=== PATIENT | male | born 1975 | race Caucasian/White ===

== ENCOUNTER → 2016-11-28 | Outpatient (CLI) | payer BC ==
[2016-11-28 12:31] LABS: ALKALINE PHOSPHATASE 70 U/L (45-117); ALT/SGPT 160 U/L (12-78); AST/SGOT 65 U/L (15-37); BLOOD UREA NITROGEN 13 mg/dl (7-18); BUN/CREATININE RATIO 10.2 (10-20); CALCIUM 8.9 mg/dl (8.5-10.1); CARBON DIOXIDE 30 mmol/L (21-32); CHLORIDE 100 mmol/L (98-107); GLUCOSE 90 mg/dl (70-99); HDL CHOLESTEROL 40 mg/dl; POTASSIUM 3.8 mmol/L (3.5-5.1); SODIUM 139 mmol/L (136-145)
[2016-11-28 12:33] LABS: PROLACTIN 1.96 ng/mL; TESTOSTERONE,TOTAL 84.45 ng/dl (241-827)
[2016-11-28 12:41] LABS: CHOLESTEROL 206 mg/dl (0-200); CHOLESTEROL/HDL RATIO 5.2; LDL CHOLESTEROL CALCULATED 101 mg/dl; TRIGLYCERIDES 327 mg/dl (0-150); VERY LOW DENSITY LIPOPROT CALC 65 mg/dl
--- NOTE | 2016-12-05 05:47 | CODING QUERY MEDICAL NECESSITY ---
SUPPORTING DIAGNOSIS NEEDED A supporting diagnosis is required for the test/procedure performed on this patient in order for us to be reimbursed by the patient's insurance. Please provide a supporting diagnosis for the following test/procedure listed below next to the test name along with your signature. *If there is no additional diagnosis for this patient that would support the following test/procedure please document that below next to the test/procedure. DATE OF SERVICE: 11/28/16 Test(s)/Procedure(s) that require a supporting diagnosis: * PSA DIAGNOSIS: Provider Signature: Date: Thank you Agata Lucio [employer] Once completed, please kindly fax back to [phone] For questions please call [phone]
== END | disposition home or self-care (01) ==
LOC: C.LABBFT 07:58
PROVIDERS: ATTEND Nurse Practitioner Family
DX: D35.2 Benign neoplasm of pituitary gland (principal); E78.00 Pure hypercholesterolemia, unspecified; E04.1 Nontoxic single thyroid nodule; E22.1 Hyperprolactinemia

== ENCOUNTER → 2017-02-22 | Outpatient (CLI) | payer BC ==
[2017-02-22 13:11] LABS: THYROID STIMULATING HORMONE 3.85 uIu/ml (0.300-4.500)
== END | disposition home or self-care (01) ==
LOC: C.LABBFT 10:03
PROVIDERS: ATTEND Nurse Practitioner Adult Health
DX: R94.6 Abnormal results of thyroid function studies (principal); R74.0 Nonspecific elevation of levels of transaminase and lactic acid dehydrogenase [LDH]

== ENCOUNTER → 2017-03-22 | Outpatient (CLI) | payer BC ==
[2017-03-22 12:16] LABS: BASO % 0.3 %; BASO ABS # 0.02 K/uL (0-0.2); COMPLETE YES; HEMATOCRIT 47.9 % (42-52); IG% 0.8 %; LYMPH % 30.8 %; LYMPH ABS # 1.91 K/uL (1.2-3.4); MEAN CELL VOLUME 87.6 fL (80-100); MEAN CORPUSCULAR HEMOGLOBIN 29.6 pg (25-34); MEAN CORPUSCULAR HGB CONC 33.8 g/dl (32-36); MEAN PLATELET VOLUME 10.1 fL (7.4-10.4); MONO % 9.4 %; NEUT % 57.7 %; PLATELET COUNT 261 K/uL (130-400); RED BLOOD COUNT 5.47 M/uL (4.7-6.1)
[2017-03-22 12:35] LABS: MAGNESIUM 2.3 mg/dl (1.8-2.4)
[2017-03-22 13:20] LABS: FERRITIN 484.6 ng/ml (8.0-388.0); PHOSPHORUS 3.1 mg/dl (2.5-4.9); THYROID STIMULATING HORMONE 4.55 uIu/ml (0.300-4.500)
[2017-03-22 13:32] LABS: CALCULATED INSULIN SENSITIVITY 0.327; INSULIN FASTING 11.3 mU/L (3-25)
[2017-03-26 23:30] LABS: ALBUMIN 4.3 G/DL (3.8-4.8); GAMMA GLOBULIN 1.1 G/DL (0.8-1.7); MICROSOMAL AB <1 IU/ML (<9); TESTOSTERONE,TOTAL 757 ng/dL (250-1100); TOTAL PROTEIN 7.2 G/DL (6.2-8.3)
== END | disposition home or self-care (01) ==
LOC: C.LABBFT 08:02
PROVIDERS: ATTEND Internal Medicine Endocrinology, Diabetes & Metabolism
DX: E29.1 Testicular hypofunction (principal); D35.2 Benign neoplasm of pituitary gland; M85.80 Other specified disorders of bone density and structure, unspecified site; R94.6 Abnormal results of thyroid function studies; E78.1 Pure hyperglyceridemia

== ENCOUNTER → 2017-04-20 | Outpatient (CLI) | payer BC ==
[2017-04-21 06:33] LABS: ESTIMATED AVERAGE GLUCOSE 105 mg/dl; HA1C FLAG Normal (Normal)
[2017-04-26 15:56] LABS: ILGF1 Z SCORE MALE -0.4 SD (-2.0 - +2.0); INSULIN LIKE GF BIND PROT 3 3.5 mg/L (3.3-6.7)
== END | disposition home or self-care (01) ==
LOC: C.LABBFT 11:26
PROVIDERS: ATTEND Internal Medicine Endocrinology, Diabetes & Metabolism
DX: E29.1 Testicular hypofunction (principal); D35.2 Benign neoplasm of pituitary gland; R73.01 Impaired fasting glucose

== ENCOUNTER → 2017-06-27 | Outpatient (CLI) | payer BC ==
[2017-06-27 13:52] LABS: THYROID STIMULATING HORMONE 0.776 uIu/ml (0.300-4.500)
== END | disposition home or self-care (01) ==
LOC: C.LABBFT 08:40
PROVIDERS: ATTEND Internal Medicine Endocrinology, Diabetes & Metabolism
DX: R94.6 Abnormal results of thyroid function studies (principal); D35.2 Benign neoplasm of pituitary gland

== ENCOUNTER → 2018-01-17 | Outpatient (CLI) | payer BC ==
[2018-01-17 12:10] LABS: HEMATOCRIT 49.3 % (42-52); HEMOGLOBIN 17.1 g/dL (14.0-18.0)
[2018-01-17 13:03] LABS: ALBUMIN 4.1 gm/dl (3.4-5.0); BLOOD UREA NITROGEN 14 mg/dl (7-18); CALCIUM 8.9 mg/dl (8.5-10.1); CARBON DIOXIDE 32 mmol/L (21-32); CHOLESTEROL 249 mg/dl (0-200); CREATININE 1.26 mg/dl (0.60-1.40); GLUCOSE 101 mg/dl (70-99); POTASSIUM 3.5 mmol/L (3.5-5.1); SODIUM 134 mmol/L (136-145)
[2018-01-17 13:06] LABS: ALKALINE PHOSPHATASE 65 U/L (45-117); AST/SGOT 23 U/L (15-37); TOTAL PROTEIN 7.9 gm/dl (6.4-8.2)
[2018-01-17 13:30] LABS: ALT/SGPT 47 U/L (12-78)
== END | disposition home or self-care (01) ==
LOC: C.LABBFT 08:48
PROVIDERS: ATTEND Internal Medicine Endocrinology, Diabetes & Metabolism
DX: D35.2 Benign neoplasm of pituitary gland (principal); E29.1 Testicular hypofunction; E04.1 Nontoxic single thyroid nodule; M89.8X9 Other specified disorders of bone, unspecified site; M85.80 Other specified disorders of bone density and structure, unspecified site

== ENCOUNTER → 2018-02-04 | Outpatient (CLI) | payer BC | END | disposition home or self-care (01) | LOC: C.LAB1850 14:37 | PROVIDERS: ATTEND Internal Medicine Endocrinology, Diabetes & Metabolism | DX: R53.83 Other fatigue (principal) ==